=== PATIENT | female | born 1995 | race Caucasian/White ===

== ENCOUNTER 2024-03-24 00:02 | Emergency (ER) | payer OTHER, SELFPAY ==
--- NOTE | ~2024-03-24 | CT_ITS ---
Non-contrast CT scan of the Pelvis Clinical indication: Trauma Technique: 2.5 mm axial scans were obtained through the pelvis without intravenous or oral contrast. Dose reduction technique was used on this scan by utilizing automated exposure control and iterative reconstruction technique. The dose-length product (DLP) was 215.28 mGy-cm. Findings: No fracture or dislocation seen. Joint spaces are preserved. No joint effusion evident. Visualized musculature about the pelvis is unremarkable. No significant soft tissue abnormality seen. Visualized bowel loops are unremarkable. No ascites. No adnexal mass seen. Urinary bladder unremarkab le. IMPRESSION: No significant abnormality seen. Reviewed, dictated and finalized at location M.
--- NOTE | ~2024-03-24 | CT_ITS ---
Noncontrast CT scan of the lumbar spine CLINICAL HISTORY: Back pain TECHNIQUE: Axial noncontrast imaging of the lumbar spine was performed. Sagittal and coronal reformat heriberto images were constructed. Dose reduction technique was used on this scan by utilizing automated ex posure control and iterative reconstruction technique. The dose-length product (DLP) was 312.51 mGy-c m. FINDINGS: There is no fracture or subluxation of the lumbar spine. Vertebral bodies maintain normal h eight and alignment. Intervertebral disc spaces are preserved. At L1-L2, there is no disc bulge or herniation. No spinal canal stenosis or neural foraminal narrowin g. At L2-L3, there is noted significant disc bulge or herniation. No spinal canal stenosis or neural for aminal narrowing evident. At L3-L4, there is no disc bulge or herniation. No spinal canal stenosis or definite neural foraminal narrowing. At L4-L5, there is minimal disc bulge with mild facet arthropathy. No central canal stenosis. Probabl e mild left neural foraminal narrowing. Right neural foramen preserved. At L5-S1, there is no disc bulge or herniation. No spinal canal stenosis. There is probable mild to m oderate left neural foraminal narrowing. Right neural foramen preserved. Paravertebral soft tissues are unremarkable. Impression: No acute posttraumatic abnormality. Probable mild to moderate left neural foraminal narrowing at L4-L5 and L5-S1. Reviewed, dictated and finalized at location M. Impression: No acute posttraumatic abnormality. Probable mild to moderate left neural foraminal narrowing at L4-L5 and L5-S1.
[2024-03-24 00:04] VITALS: BP 127/76; PULSE 109; RESP 17; TEMP 36.3; O2SAT 100
[2024-03-24 02:34] VITALS: BP 105/65; PULSE 81; RESP 15; O2SAT 100
[2024-03-24 05:00] VITALS: BP 106/66; PULSE 84; RESP 13; O2SAT 97
[2024-03-24] MEDS: ORPHENADRINE CITRATE 100 MG TABLET.ER PO (05:05)
[2024-03-24] MEDS: KETOROLAC (*BKC) 60 MG/2 ML VIAL IM (05:06)
[2024-03-24 05:55] LABS: Add Urine Microscopic? YES; Appearance Urine Cloudy (Clear); Bacteria Urine Rare /hpf; Bilirubin Urine Negative (Negative); Blood Urine Trace (Negative); Color Urine Dark Yellow (Yellow); Glucose Urine UA Negative (Negative); Ketones Urine Trace mg/dL (Negative); Leukocyte Esterase Ur Negative LEU/UL (Negative); Mucus Urine Present /lpf; Need Manual Microscopic Reviewed; Nitrate Urine Negative (Negative); Non Pathogenic Casts 0-2; Protein Urine Negative (Negative); RBC Urine 0-2 /hpf (0-2); Specific Grav Ur 1.024 (1.001-1.035); Squamous Epithelial Cell Urine Few /hpf (Few); WBC Urine 0-5 /hpf (0-3); pH Urine 5.5 (5.0-9.0)
--- NOTE | 2024-03-24 06:32 | ED.GENADULT ---
HPI - General Adult General Chief complaint: Extremity Injury, Lower Stated complaint: unable to walk for month Time Seen by Provider: 03/24/24 04:15 History of Present Illness HPI narrative: Patient is a 28-year-old female who presents emergency department with chief complaint of back pain and pain radiating down her legs. Patient reports the pain is worse with standing and worse with ambulating patient reports being on for a month and a half and reports that she jumped out of a second-story building the patient reports she was seen and a [facility] emergency department had plain film x-rays of her knees number reports no x-rays of her back that time. The patient denies bowel or bladder dysfunction denies saddle anesthesia denies footdrop. Related Data Allergies Allergy/AdvReac Type Severity Reaction Status Date / Time No Known Allergies Allergy Verified 03/24/24 00:03 Review of Systems Review of Systems: A 10 system review of systems was completed on the patient and is negative except for what is stated in the HPI. Nursing and ancillary documentation was reviewed. Exam Narrative: GENERAL: Well-appearing, well-nourished, and in no acute distress. HEAD: Normocephalic, atraumatic. EYES: PERRLA and EOMI. ENT: Nares clear, no rhinorrhea or epistaxis. Mucous membranes moist. NECK: Supple. CHEST: Clear to auscultation. No respiratory distress. HEART: Regular rate and rhythm. No murmur heard. Normal peripheral pulses. ABDOMEN: Soft, nontender, nondistended, normal active bowel sounds. EXTREMITIES: Normal range of motion. No edema. Patient expresses pain with ambulation SKIN: Warm, dry, no rash. NEURO: No focal deficits. Alert and oriented x3. PSYCH: Normal mood and affect. Course Vital Signs Vital signs: Vital Signs Temperature 36.3 C L 03/24/24 00:04 Pulse Rate 109 H 03/24/24 00:04 Respiratory Rate 17 03/24/24 00:04 Blood Pressure 127/76 03/24/24 00:04 Pulse Oximetry 100 03/24/24 00:04 Oxygen Delivery Room Air 03/24/24 00:04 Temperature 36.3 C L 03/24/24 00:04 Pulse Rate 84 03/24/24 05:00 Respiratory Rate 13 03/24/24 05:00 Blood Pressure 106/66 03/24/24 05:00 Pulse Oximetry 97 03/24/24 05:00 Oxygen Delivery Room Air 03/24/24 00:04 Medical Decision Making MDM Narrative Medical decision making narrative: Differential diagnosis includes lumbar fracture, pelvic fracture, DJD, neuroforaminal narrowing Urinalysis was obtained which showed no evidence UTI CT scan of the lumbar spine showed GENERAL: Well-appearing, well-nourished, and in no acute distress. HEAD: Normocephalic, atraumatic. EYES: PERRLA and EOMI. ENT: Nares clear, no rhinorrhea or epistaxis. Mucous membranes moist. NECK: Supple. CHEST: Clear to auscultation. No respiratory distress. HEART: Regular rate and rhythm. No murmur heard. Normal peripheral pulses. ABDOMEN: Soft, nontender, nondistended, normal active bowel sounds. EXTREMITIES: Normal range of motion. No edema. SKIN: Warm, dry, no rash. NEURO: No focal deficits. Alert and oriented x3. PSYCH: Normal mood and affect. CT of the pelvis showed no evidence of fracture. Vital Signs Vital Signs: Vital Signs Temperature 36.3 C L 03/24/24 00:04 Pulse Rate 109 H 03/24/24 00:04 Respiratory Rate 17 03/24/24 00:04 Blood Pressure 127/76 03/24/24 00:04 Pulse Oximetry 100 03/24/24 00:04 Oxygen Delivery Room Air 03/24/24 00:04 Temperature 36.3 C L 03/24/24 00:04 Pulse Rate 84 03/24/24 05:00 Respiratory Rate 13 03/24/24 05:00 Blood Pressure 106/66 03/24/24 05:00 Pulse Oximetry 97 03/24/24 05:00 Oxygen Delivery Room Air 03/24/24 00:04 Lab Data Labs: Lab Results 03/24/24 Range/Units 05:03 Urine Color Dark yellow (Yellow) Urine Appearance Cloudy H (Clear) Urine pH 5.5 (5.0-9.0) Ur Specific [place] 1.024 (1.001-1.035) Urine Protein Negative (Negative) mg/dL Urine Glu
[2024-03-24 06:45] VITALS: BP 111/67; PULSE 86; RESP 16; O2SAT 97
== END 2024-03-24 06:48 | disposition home or self-care (01) ==
PROVIDERS: Emergency Provider Emergency Medicine
DX: M47.816 Spondylosis without myelopathy or radiculopathy, lumbar region (principal)
CPT/HCPCS: 72131; 72192; 81001; 81025; 96372; 99284; A9270; J1885